=== PATIENT | male | born 1995 | race Caucasian/White ===

== ENCOUNTER 2025-06-29 03:48 | Emergency (ER) | payer SELFPAY ==
[2025-06-29] MEDS ORDERED: TORAdol 30 mg Injection ONE (04:05)
[2025-06-29] MEDS: TORAdol 30 mg Injection IV ONE (04:06)
[2025-06-29 04:12] VITALS: TEMP 96.5
[2025-06-29 04:15] LABS: BASOPHIL % 0.5 % (0.2-1.2); Basophil (Absolute #) 0.04 x10^3/uL (0.01-0.08); Eosinophil (Absolute #) 0.22 x10^3/uL (0.04-0.54); Hematocrit 47.1 % (40.1-51.0); Hemoglobin 15.4 g/dL (13.7-17.5); IMMATURE GRAN # 0.05 x10^3u/L (0.001-0.031); IMMATURE GRAN % 0.6 % (0.001-0.429); Lymphocyte (Absolute #) 2.00 x10^3/uL (1.32-3.57); Mean Corpuscular Hemoglobin 29.4 pg (25.7-32.2); Mean Corpuscular Hgb Concent. 32.7 g/dL (32.3-36.5); Monocyte (Absolute #) 0.52 x10^3/uL (0.30-0.82); NUCLEATED RBC # 0.00 x10^3u/L (0.00-0.012); NUCLEATED RBC % 0.0 % (0.00-0.2); Platelet Count 181 x10^3/uL (163-337); Red Blood Count 5.24 x10^6/uL (4.63-6.08); White Blood Count 8.8 x10^3/uL (4.23-9.07)
[2025-06-29 04:29] LABS: Calcium 9.5 mg/dL (8.4-10.2); Carbon Dioxide 27.0 mmol/L (22-30); Creatinine 1 1.36 mg/dL (0.66-1.25); EST GLOMERULAR FILTRATION RATE 70.9 ML/MIN; Glucose 225.0 mg/dL (74-106); SGOT/AST 31.0 U/L (17-59); SGPT/ALT 40.0 U/L (0-50); Total Protein 7.6 g/dL (6.3-8.2)
[2025-06-29 04:33] LABS: Potassium 3.0 mmol/L (3.5-5.1)
[2025-06-29] MEDS ORDERED: Klor Con ONE (04:39)
[2025-06-29] MEDS ORDERED: POTASSIUM CHLORIDE 20 mEq IN WATER 100ML 100 ML IV ONE (04:40)
[2025-06-29] MEDS ORDERED: Magnesium 1 Gm / 100 Ml D5W*** 100 ML IV ONE ×2 (04:40→05:15)
--- NOTE | 2025-06-29 04:41 | ERPHSYRPT ---
- History of Present Illness Time Seen by Provider: 06/29/25 04:36 Historian: patient Exam Limitations: no limitations Patient Subjective Stated Complaint: pt states that he was woke up out of a sleep with sharp pain to his left lower back that radiates to left lower belly Triage Nursing Assessment: pt ambulated into the er; pt is axo x4; pt is thrashing around, crying; c/o left lower back pain; pt statest 10/10 pain that radiates to left lower abd; abd round, large, soft, tender to LLQ; c/o N/V, denies diarrhea; pt states difficulty with urination; skin PDW; hypertensive; no respiratory distress present Physician History: 30-year-old male current smoker history of seizures and GERD presents to our ED for evaluation of left-sided flank pain that woke him from sleep. Patient states the pain radiates from his back down to his groin area on the left side. Patient rates pain 10 out of 10. No trauma no fever. No history of kidney stones. Symptoms associated with nausea and vomiting. Diarrhea rash. no chest pain or shortness of breath. Patient otherwise feels well. He voices no other complaints or concerns at this time. Portions of this note were created with voice recognition technology. There may be grammatical, spelling, punctuation or sound alike errors Timing/Duration: today Activities at Onset: none Quality: aching Abdominal Pain Onset Location: flank (Left flank) Pain Radiation: groin Severity of Pain-Max: moderate Severity of Pain-Current: mild Modifying Factors: Improves With: nothing Associated Symptoms: nausea, vomiting Previous symptoms: no prior history Allergies/Adverse Reactions: amoxicillin [Amoxicillin] Allergy (Mild, Verified 06/29/25 03:56) cephalexin monohydrate [From Keflex] Allergy (Mild, Verified 06/29/25 03:56) erythromycin base [Erythromycin Base] Allergy (Mild, Verified 06/29/25 03:56) Penicillins Allergy (Mild, Verified 06/29/25 03:56) Hx Tetanus, Diphtheria Vaccination/Date Given: No Hx Influenza Vaccination/Date Given: No Hx Pneumococcal Vaccination/Date Given: No Travel Risk - International Travel Have you traveled outside of the country in past 3 weeks: No - Emerging Infectious Disease Are you exhibiting symptoms associated with any current EIDs: No - Review of Systems All Other Systems: Reviewed and Negative - Past Medical History Pertinent Past Medical History: No Neurological History: Seizures Cardiac History: No Pertinent History Respiratory History: No Pertinent History Endocrine Medical History: No Pertinent History Musculoskeletal History: No Pertinent History GI Medical History: GERD, Gallbladder Disease, Other Other Medical History: h.pylori - Past Surgical History Past Surgical History: Yes Gastrointestinal: Cholecystectomy Significant Family History: no pertinent family hx - Social History Smoking Status: Current every day smoker How long have you smoked: 4 Exposure to second hand smoke: No Drug Use: none - Social Determinants of Health Will the patient participate in the screening: Declined to provide - Nursing Vital Signs Nursing Vital Signs: Initial Vital Signs Temperature 96.5 F 06/29/25 03:57 Pulse Rate 94 H 06/29/25 03:57 Respiratory Rate 22 06/29/25 03:57 Blood Pressure 161/104 06/29/25 03:57 O2 Sat by Pulse Oximetry 99 06/29/25 03:57 Pain Scale Pain Intensity [] 10 Pain Intensity 3 - Physical Exam General Appearance: no apparent distress, alert Eye Exam: PERRL/EOMI, eyes nml inspection Ears, Nose, Throat Exam: normal ENT inspection, pharynx normal, moist mucous membranes Neck Exam: normal inspection, full range of motion Respiratory Exam: normal breath sounds, lungs clear, airway intact, No respiratory distress Cardiovascular Exam: regular rate/rhythm, normal heart sounds Gastrointestinal/Abdomen Exam: soft, tenderness (Tenderness to palpation left flank), No mass Back Exam: normal inspection, normal range of motion, No CVA tenderness, No vertebral tenderness Extremity Exam: normal inspection, normal range of motion, pelvis stable Neurologic Exam: alert, oriented x 3, cooperative, normal mood/affect, sensation nml, No motor deficits Skin Exam: normal color, warm, dry Lymphatic Exam: No adenopathy SpO2 Interpretation: normal SpO2: 99 O2 Delivery: Room Air - Course Nursing assessment & vital signs reviewed: Yes - CT Exams Abdomen/Pelvis CT Interpretation: Tele-radiologist Report (Hepatic steatosis, left hydronephrosis, left hydroureter, 2 mm obstructive stone at the UVJ, fat containing umbilical and right inguinal hernia) Ordered Tests: Active Orders 24 hr Category Date Time Status IV Insertion STAT Care 06/29/25 03:58 Active Telemetry q4h Care 06/29/25 04:37 Active ABDOMEN AND PELVIS W/0 CONTRAS [CT] Stat Exams 12/04/25 03:59 Completed CBC W DIFF Stat Lab 06/29/25 04:15 Completed CMP Stat Lab 06/29/25 04:15 Completed UA W/RFX UR CULTURE Stat Lab 06/29/25 05:42 Completed Medication Summary Generic Name Dose Route Start Last Admin Trade Name Lefty PRN Reason Stop Dose Admin Magnesium Sulfate/Dextrose 100 mls @ 100 mls/hr 06/29/25 04:45 06/29/25 05:19 Magnesium 1 Gm / 100 Ml D5w IV 06/29/25 06:44 100 mls/hr Q1H REINALDO Administration Potassium Chloride 20 meq in 100 mls @ 50 mls/hr 06/29/25 04:37 06/29/25 04:42 Potassium Chloride 20 Meq In Water 100ml IV 06/29/25 06:36 50 mls/hr STAT ONE Administration Sodium Chloride 1,000 mls @ 125 mls/hr 06/29/25 04:45 06/29/25 04:42 Sodium Chloride 0.9% 1000 Ml IV 07/29/25 04:44 125 mls/hr .Q8H REINALDO Administration Discontinued Medications Generic Name Dose Route Start Last Admin Trade Name Letfy PRN Reason Stop Dose Admin Sodium Chloride 1,000 mls @ 999 mls/hr 06/29/25 03:58 06/29/25 05:11 Sodium Chloride 0.9% 1000 Ml IV 06/29/25 04:58 Infused .Q1H1M STA Infusion Sodium Chloride Confirm 06/29/25 04:05 Sodium Chloride 0.9% 1000 Ml Administered 06/29/25 04:06 Dose 1,000 mls @ ud .ROUTE .STK-MED ONE Sodium Chloride Confirm 06/29/25 04:40 Sodium Chloride 0.9% 1000 Ml Administered 06/29/25 04:41 Dose 1,000 mls @ ud .ROUTE .STK-MED ONE Potassium Chloride Confirm 06/29/25 04:40 Potassium Chloride 20 Meq In Water 100ml Administered 06/29/25 04:41 Dose 100 mls @ ud IV .STK-MED ONE Ketorolac Tromethamine 30 mg 06/29/25 03:58 06/29/25 04:06 Ketorolac Tromethamine 30 Mg/Ml Inj IV 06/29/25 03:59 30 mg STAT ONE Administration Ketorolac Tromethamine Confirm 06/29/25 04:05 Ketorolac Tromethamine 30 Mg/Ml Inj Administered 06/29/25 04:06 Dose 30 mg .ROUTE .STK-MED ONE Morphine Sulfate 4 mg 06/29/25 05:23 06/29/25 05:36 Morphine Sulfate 4 Mg/Ml Injection IV 06/29/25 05:24 4 mg STAT ONE Administration Morphine Sulfate Confirm 06/29/25 05:35 Morphine Sulfate 4 Mg/Ml Injection Administered 06/29/25 05:36 Dose 4 mg .ROUTE .STK-MED ONE Ondansetron HCl 4 mg 06/29/25 05:23 06/29/25 05:36 Ondansetron Hcl 4 Mg/2 Ml Vial IV 06/29/25 05:24 4 mg STAT ONE Administration Ondansetron HCl Confirm 06/29/25 05:34 Ondansetron Hcl 4 Mg/2 Ml Vial Administered 06/29/25 05:35 Dose 4 mg .ROUTE .STK-MED ONE Potassium Chloride 40 meq 06/29/25 04:37 06/29/25 04:42 Potassium Chloride Tab 10 Meq Tab PO 06/29/25 04:38 40 meq STAT ONE Administration Potassium Chloride Confirm 06/29/25 04:39 Potassium Chloride Tab 10 Meq Tab Administered 06/29/25 04:40 Dose 40 meq .ROUTE .STK-MED ONE Tamsulosin HCl 0.4 mg 06/29/25 05:24 06/29/25 05:36 Tamsulosin Hcl 0.4 Mg Cap PO 06/29/25 05:25 0.4 mg ONCE STA Administration Tamsulosin HCl Confirm 06/29/25 05:35 Tamsulosin Hcl 0.4 Mg Cap Administered 06/29/25 05:36 Dose 0.4 mg .ROUTE .STK-MED ONE Lab/Rad Data: Laboratory Result Diagrams 06/29/25 04:15 06/29/25 04:15 Laboratory Results 06/29/25 06/29/25 06/29/25 Range/Units 05:42 04:15 04:15 WBC 8.8 (4.23-9.07) x10^3/uL RBC 5.24 (4.63-6.08) x10^6/uL Hgb 15.4 (13.7-17.5) g/dL Hct 47.1 (40.1-51.0) % MCV 89.9 (79.0-92.2) fL MCH 29.4 (25.7-32.2) pg MCHC 32.7 (32.3-36.5) g/dL RDW 13.1 (11.6-14.4) % Plt Count 181 (163-337) x10^3/uL MPV 9.9 (9.4-12.4) fL Gran % 67.7 (34.0-67.9) % Immature Gran % (Auto) 0.6 H (0.001-0.429) % Nucleat RBC Rel Count 0.0 (0.00-0.2) % Eos # (Auto) 0.22 (0.04-0.54) x10^3/uL Immature Gran # (Auto) 0.05 H (0.001-0.031) x10^3u/L Absolute Lymphs (auto) 2.00 (1.32-3.57) x10^3/uL Absolute Monos (auto) 0.52 (0.30-0.82) x10^3/uL Absolute Nucleated RBC 0.00 (0.00-0.012) x10^3u/L Lymphocytes % 22.8 (21.8-53.1) % Monocytes % 5.9 (5.3-12.2) % Eosinophils % 2.5 (0.8-7.0) % Basophils % 0.5 (0.2-1.2) % Absolute Granulocytes 5.93 H (1.78-5.38) x10^3/uL Basophils # 0.04 (0.01-0.08) x10^3/uL Sodium 139 (135-145) mmol/L Potassium 3.0 L* (3.5-5.1) mmol/L Chloride 100 (98-107) mmol/L Carbon Dioxide 27 (22-30) mmol/L Anion Gap 15.6 H (5-15) MEQ/L BUN 17 (9-20) mg/dL Creatinine 1.36 H (0.66-1.25) mg/dL Estimated GFR 70.9 ML/MIN Glucose 225 H (74-106) mg/dL Calcium 9.5 (8.4-10.2) mg/dL Total Bilirubin 0.60 (0.2-1.3) mg/dL AST 31 (17-59) U/L ALT 40 (0-50) U/L Alkaline Phosphatase 88 (38-126) U/L Serum Total Protein 7.6 (6.3-8.2) g/dL Albumin 4.6 (3.5-5.0) g/dL Urine Color Yellow (Yellow) Urine Appearance Turbid A (Clear) Urine pH 8.0 (4.6-8.0) Ur Specific Bear 1.015 (1.005-1.030) Urine Protein Negative (Negative) Urine Glucose (UA) 500 A (Negative) mg/dL Urine Ketones Negative (Negative) Urine Blood NHT (Negative) Urine Nitrite Negative (Negative) Urine Bilirubin Negative (Negative) Urine Urobilinogen 0.2 (0.2) mg/dL Ur Leukocyte Esterase Negative (Negative) U Hyaline Cast (Auto) NONE SEEN (0-2) /LPF Urine Microscopic RBC 6-10 A (0-5) /HPF Urine Microscopic WBC 0-2 (0-5) /HPF Ur Epithelial Cells None Seen (None Seen) /HPF Urine Bacteria None Seen (None Seen) /HPF Urine Culture Reflexed NO (NO) - Progress Progress: improved Progress Note: 30-year-old male current smoker history of seizures and GERD presents to our ED for evaluation of left-sided flank pain that woke him from sleep. Patient states the pain radiates from his back down to his groin area on the left side. Patient rates pain 10 out of 10. No trauma no fever. No history of kidney stones. Sickle exam reveals tenderness to palpation at left flank. Left CVA tenderness. Laboratory workup reveals an elevated creatinine of 1.36. Baseline creatinine is 0.9 potassium 3.0. Patient received 40 mill equivalents potassium chloride p.o. 20 mill equivalents potassium IV piggyback. [address] abdomen pelvis reveals an obstructing 2 mm stone just proximal to the UVJ with associated hydronephrosis and hydroureter. Patient received a dose of tamsulosin. IV fluids infusing. In light of patient's ongoing flank pain, acute renal injury we consulted with urology from [facility]. We are currently awaiting return call. History obtained from patient and his father who is at the bedside. Differential diagnosis includes kidney stone, trauma, colitis, intestinal colic Complexity of problems addressed is moderate acute complicated. No critical care time. Complex of data reviewed and analyzed is extensive. Test ordered chest reviewed results analyzed and correlated clinically with history and physical exam. Management discussed with urology. Risk of complication and or risk of morbidity/mortality of patient management is high. Patient received IV morphine for pain control. Prescription for Toradol and tamsulosin forwarded to patient's pharmacy. Vital stable. Time spent to discharge patient is approximately 20 minutes. Plan of care established for shared decision making. No social determinants of health present to impede follow-up. Urine strainer provided Portions of this note were created with voice recognition technology. There may be grammatical, spelling, punctuation or sound alike errors 06/29/25 05:27 06/29/25 05:32 I spoke to urologist Dr. Peoples neurologist at [facility]. We reviewed the laboratory findings including the change in creatinine of 1.36. We discussed the UA which is negative for UTI significant for microscopic hematuria. Per Dr. Peoples patient may be discharged home if the nausea vomiting and pain can be controlled. He will see patient in his office. His number is [phone]. 06/29/25 05:57 06/29/25 06:05 Counseled pt/family regarding: lab results, diagnosis, need for follow-up, rad results - Departure Departure Disposition: Home Clinical Impression: Hyperglycemia, Flank pain, Acute renal injury, Ureterolithiasis, Hydroureter, Hydronephrosis, Renal colic on left side, Hypokalemia, Nausea and vomiting Condition: Stable Critical Care Time: No Referrals: [facility] [Primary Care Provider, UNKNOWN] - Follow up/PCP as directed Additional Instructions: Please contact Dr. Peoples urologist at [phone] for follow-up appointment Discharge/Care Plan PARMINDER HIGGINS was seen on 06/29/25 in the Emergency Room. The patient was counseled regarding Diagnosis,Lab results, Imaging studies, need for follow up and when to return to the Emergency Room. Prescriptions given: Discharge Note I have spoken with the patient and/or caregivers. I have explained the patient's condition, diagnosis and treatment plan based on the information available to me at this time. I have answered the patient's and/or caregiver's questions and addressed any concerns. The patient and/or caregivers have as good understanding of the patient's diagnosis, condition and treatment plan as can be expected at this point. The vital signs have been stable. The patient's condition is stable and appropriate for discharge from the emergency department. The patient will pursue further outpatient evaluation with the primary care physician or other designated or consulting physician as outlined in the discharge instructions. The patient and/or caregivers are agreeable to this plan of care and follow-up instructions have been explained in detail. The patient and/or caregivers have received these instruction. The patient/and or caregivers are aware that any significant change in condition or worsening of symptoms should prompt an immediate return to this or the closest emergency department or call 911. Prescriptions: Ondansetron ODT 4 MG [Zofran Odt 4 mg] 4 mg PO Q6H PRN PRN #10 tablet PRN Reason: Vomiting Tamsulosin HCl 0.4 mg PO DAILY 14 Days #14 cap Ketorolac Trometh 10 mg Tab [TORAdol 10 MG TABLET] 10 mg PO TID 5 Days #15 tablet
[2025-06-29] MEDS: Klor Con PO ONE (04:42)
[2025-06-29] MEDS: Magnesium 1 Gm / 100 Ml D5W*** 100 ML IV SCH (04:42)
[2025-06-29] MEDS: POTASSIUM CHLORIDE 20 mEq IN WATER 100ML 20 MEQ/100 ML BAG IV ONE (04:42)
--- NOTE | 2025-06-29 05:09 | XRAY ---
CLINICAL HISTORY: pain COMPARISON: None. TECHNIQUE: Contiguous axial images were obtained from the level of the diaphragm to the pubic symphysis without intravenous or oral contrast. Coronal and sagittal reconstructions were likewise performed to increase the sensitivity for detecting clinically relevant pathology. The CT scan was performed according to ALARA (as low as reasonably achievable). FINDINGS: The visualized lung bases are clear. Evaluation of the abdominal and pelvic visceral organs is limited without intravenous contrast. The unenhanced spleen, pancreas, and adrenal glands are grossly unremarkable. Hepatic steatosis. Status post-cholecystectomy. The kidneys are normal in size and attenuation without obvious calcification. The left kidney shows mild hydronephrosis and hydroureter up to an obstructive calculus of size 2 mm involving left lower ureter, just proximal to the vesicoureteric junction. No adenopathy or fluid collections are seen. No evidence of focal or diffuse bowel wall thickening or evidence of bowel obstruction is seen. No imaging evidence of appendicitis. The aorta is normal in caliber. The urinary bladder is normal in contour. Pelvic viscera are grossly unremarkable. No aggressive-appearing osseous lesions are identified. Fat-containing right inguinal hernia. Fat-containing umbilical hernia. IMPRESSION: The left kidney shows mild hydronephrosis and hydroureter up to an obstructive calculus of size 2 mm involving left lower ureter, just proximal to the vesicoureteric junction. Hepatic steatosis. Fat-containing right inguinal hernia. Fat-containing umbilical hernia. Electronically Signed by: Mejia Glover MD. (06/29/2025 05:07:08 EST)
[2025-06-29 05:17] VITALS: RESP 25
[2025-06-29] MEDS ORDERED: Zofran 4 MG/2 ML VIAL ONE (05:34)
[2025-06-29] MEDS ORDERED: Flomax 0.4 MG ONE (05:35)
[2025-06-29] MEDS ORDERED: MORPHINE SULFATE 4 MG INJ ONE (05:35)
[2025-06-29] MEDS: Flomax 0.4 MG PO STA (05:36)
[2025-06-29] MEDS: Zofran 4 MG/2 ML VIAL IV ONE (05:36)
[2025-06-29] MEDS: MORPHINE SULFATE 4 MG INJ IV ONE (05:36)
[2025-06-29 05:53] LABS: Glucose, Urine 500 mg/dL (Negative); Protein,Urine Dip Negative (Negative); WBC 0-2 /HPF (0-5)
[2025-06-29 06:04] VITALS: BP 150/92; PULSE 98
[2025-06-29 06:07] VITALS: O2SAT 99
== END 2025-06-29 06:59 | disposition home or self-care (01) ==
LOC: ED 03:48
DX: N13.2 Hydronephrosis with renal and ureteral calculous obstruction (principal); N17.9 Acute kidney failure, unspecified; R73.9 Hyperglycemia, unspecified; N23 Unspecified renal colic; E87.6 Hypokalemia; R11.2 Nausea with vomiting, unspecified; Z79.899 Other long term (current) drug therapy; Z72.0 Tobacco use